=== PATIENT | male | born 1950 | race Caucasian/White ===

== ENCOUNTER 2016-08-02 15:25 | Emergency (ER) | payer MEDICARE, OTHER ==
[2016-08-02] MEDS ORDERED: HYDROmorphone HCL INJ 2 MG/ML VIAL ONE ×2 (15:32→15:42)
[2016-08-02] MEDS ORDERED: HYDROmorphone HCL INJ 2 MG/ML VIAL IV ONE ×3 (16:00→16:50)
--- NOTE | 2016-08-02 17:25 | CT ---
EXAM DESCRIPTION: CT HEAD WITHOUT INTRAVENOUS CONTRAST CLINICAL HISTORY: [facility] COMPARISON: None TECHNIQUE: CT of the head was performed without intravenous contrast . FINDINGS: There is no intracranial hemorrhage, midline shift, mass effect or acute focal infarct. An MRI examination is more sensitive than the current study in evaluation of early acute infarcts, if present or clinically suspected. There is good andrade/white matter differentiation. The ventricular system is normal. Visualized mastoid air cells are unremarkable. The paranasal sinuses show changes of underlying chronic sinusitis. There is no visualization of calvarial or skull base fractures. IMPRESSION: There are no acute intracranial findings. Electronically signed by: Rangel Rebolledo MD 08/02/2016 17:23
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
[2016-08-02] MEDS ORDERED: MORPHINE SULFATE INJ 10 MG/ML VIAL IV ONE (19:11)
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
[2016-08-02] MEDS ORDERED: LIDOCAINE 1% 10 ML VIAL INJ ONE (19:37)
[2016-08-02] MEDS ORDERED: POVIDONE IODINE 10 % 15 ML UD TOP ONE (19:40)
[2016-08-02 20:22] VITALS: BP 134/75
[2016-08-03 00:34] VITALS: TEMP 98.2; O2SAT 97
== END 2016-08-02 20:35 | disposition short-term general hospital (02) ==
LOC: ER 15:25
DX: S42.192A Fracture of other part of scapula, left shoulder, initial encounter for closed fracture (principal); I10 Essential (primary) hypertension; E11.9 Type 2 diabetes mellitus without complications; J93.9 Pneumothorax, unspecified; Z88.8 Allergy status to other drugs, medicaments and biological substances; Z86.73 Personal history of transient ischemic attack (TIA), and cerebral infarction without residual deficits; V28.4XXA Motorcycle driver injured in noncollision transport accident in traffic accident, initial encounter; Y92.410 Unspecified street and highway as the place of occurrence of the external cause
CPT/HCPCS: 36415; 70450; 71260; 72125; 73020; 73070; 73100; 73502; 73560; 73590; 73600; 74177; 80053; 85025; 85610; 85730; 96374; 96375; 96376; 99285; J1170; J2270